=== PATIENT | female | born 1945 | race Caucasian/White ===

== ENCOUNTER → 2019-02-23 | Day surgery (SDC) | payer MEDICARE, OTHER ==
[~2019-02-23] MED LIST: ASA81BEC PO; BENTYL 10 MG CA10 M1 PO; CLORAZEPATE D3.75 M1 PO; DILTIAZEM ER120 M2 PO; FLONASE 0.05%50 MCG NASAL; FUROSEMIDE 40 M40 MG PO; LANTUS SOL100 UNIT/1 SUBQ; LEVO-T75 MCG PO; LIPITOR40 MG PO; LOPERAMIDE 2 MG2 M1 PO; METFORMIN HCL500 M3 PO; MOMETASONE FURO45 GM TOP; MONTELUKAST SODI4 M1 PO; NOVALOG SUBQ; OMEPRAZOLE 20 M20 M1 PO; RAMIPRIL10 MG PO; RESTASIS1 EACH OPHTHALMIC; TIZANIDINE HCL2 M1 PO; TYLENOL EXTRA500 MG PO; ZYRTEC10 M5 PO
[2019-02-23 09:16] LABS: HEMATOCRIT 40.9 % (37.0-47.0); HEMOGLOBIN 13.6 gm/dL (12.0-15.0); MCHC 33.4 g/dL (28.0-37.0); MCV 83.8 fL (80.0-100.0); RBC 4.88 mil/uL (4.20-5.00); RDW-CV 14.7 % (10.5-14.5); WBC 12.9 thou/uL (4.0-11.0)
[2019-02-23 09:24] LABS: CALCIUM 8.9 mg/dL (8.5-10.1); CREATININE 0.8 mg/dL (0.6-1.3); POTASSIUM 4.2 mmol/L (3.5-5.1)
[2019-02-23 09:29] LABS: TOTAL BILIRUBIN 0.4 mg/dL (<0.1-1.0); TOTAL PROTEIN 7.8 g/dL (6.4-8.2)
--- NOTE | 2019-02-23 10:25 | EKG ---
[place] [address] ELECTROCARDIOGRAM REPORT Name: RUELDIXIE Smith Room: [facility]#: [id number] Admission: 02/23/19 Attend Phys: Cordell Barrientos DO Discharge: Date of : 49 Report #: [id number] THIS REPORT FOR: //name// [facility] Test Date: 2019-02-23 Test Time: 09:20:57 Pat Name: DIXIE LIPSCOMB Department: Room: Gender: F [employer]: RT : 1945 Requested By: Alvin Griffin Order Number: [id number] Calixto MD: Freddy Del Angel Measurements Intervals Waterproof Rate: 106 P: 55 AL: 173 QRS: -17 QRSD: 96 T: 33 QT: 351 QTc: 467 Interpretive Statements Sinus tachycardia Borderline left axis deviation Minimal ST depression, lateral leads No previous ECG available for comparison Electronically Signed On 02-23-2019 10:25:39 [employer] by Freddy Del Angel [email or web address] <ELECTRONICALLY SIGNED> By: Freddy Del Angel MD, [facility] 02/23/19 1025 0920 9 Freddy Del Angel MD, FACC /EPI
--- NOTE | 2019-02-24 17:06 | PATH ---
[facility] [address] [place] [address] PATHOLOGY RPT PROCEDURE Name: DIXIE LIPSCOMB Room: [facility]#: [id number] Admission: 02/23/19 Date of : 49 Discharge: Report #: [id number] Path Case #: [id number] [facility] Accession Number: [id number] . 01 Material submitted: . PART A: colon - PROXIMAL TRANSVERSE COLON POLYP. Modifiers: proximal, transverse PART B: colon - MID-TRANSVERSE COLON POLYP. Modifiers: mid, transverse PART C: rectum - RECTAL POLYP X2 . 01 Clinical history: . Personal Hx of polyps . 02 Diagnosis: A. Proximal transverse colon polyp: - Tubular adenoma, negative for high grade dysplasia. . B. Mid transverse colon polyp: - Tubular adenoma, negative for high grade dysplasia. . C. Rectal polyp(s) x 2: - One tubular adenoma and one hyperplastic polyp, negative for high grade dysplasia. (BLANCO/db; 02/24/2019) LBQ 02/24/2019 1319 Local . 02 Electronically signed: . Bruce Plascencia MD, Pathologist NPI- [id number] . 01 Gross description: . A. Received in formalin labeled "Dixie Lipscomb, proximal transverse colon polyp," is a single segment of villalta soft tissue measuring 0.5 cm in maximum dimension. The specimen is entirely submitted in cassette A1. . B. Received in formalin labeled "Dixie Lipscomb, mid-transverse colon polyp," is a single segment of villalta soft tissue measuring 0.5 cm in maximum dimension. The specimen is entirely submitted in cassette B1. . C. Received in formalin labeled "Dixie Lipscomb, rectal polyps x2," and additionally labeled on the requisition as "rectal polyp x 2", is a 0.5 x 0.4 x 0.4 cm polypoid piece of villalta soft tissue. The margin is inked and the tissue is sectioned perpendicular to the margin and submitted entirely in cassette C1. Additionally received in the same container is a segment of villalta soft tissue measuring 0.5 cm in maximum dimension. The specimen is also submitted entirely in cassette C1. (TSD; 02/23/2019) TOB/TOB 02/24/2019 [address] [place] [address] PATHOLOGY RPT PROCEDURE Name: DIXIE LIPSCOMB Room: [facility]#: [id number] Admission: 02/23/19 Date of : 49 Discharge: Report #: [id number] Path Case #: [id number] . 02 Pathologist provided ICD-10: D12.3, D12.8, K62.1 . 02 CPT . 870344, 104395, 580957 Specimen Comment: A courtesy copy of this report has been sent to [phone] Specimen Comment: [id number] Specimen Comment: Report sent to / DR CAMPUZANO Performed at: [address], [place], [place] [id number] MD Jean Claude Magana MD Phone: [phone] Performed at: 02 [facility] [address], [place], [place] [id number] MD Bruce Plascencia MD Phone: [phone]
== END | disposition home or self-care (01) ==
LOC: M.SUR 08:50
PROVIDERS: Anesthesiology
DX: Z12.11 Encounter for screening for malignant neoplasm of colon (principal); Z86.010 Personal history of colon polyps; Z83.71 Family history of colonic polyps; D12.3 Benign neoplasm of transverse colon; D12.8 Benign neoplasm of rectum; K57.30 Diverticulosis of large intestine without perforation or abscess without bleeding; K64.4 Residual hemorrhoidal skin tags; E11.9 Type 2 diabetes mellitus without complications; F41.9 Anxiety disorder, unspecified; G43.909 Migraine, unspecified, not intractable, without status migrainosus; J45.909 Unspecified asthma, uncomplicated; K21.9 Gastro-esophageal reflux disease without esophagitis; Z98.890 Other specified postprocedural states; Z79.899 Other long term (current) drug therapy; Z90.711 Acquired absence of uterus with remaining cervical stump; Z98.49 Cataract extraction status, unspecified eye; Z79.82 Long term (current) use of aspirin; Z91.040 Latex allergy status; Z88.8 Allergy status to other drugs, medicaments and biological substances